=== PATIENT | female | born 1955 | race Caucasian/White ===

== ENCOUNTER → 2017-07-03 | Day surgery (SDC) | payer MEDICARE ==
[~2017-07-03] VITALS: Ht 166.4 cm; Wt 57.0 kg
[~2017-07-03] MED LIST: 0.9% Sodium Chloride 1,000 ML IV SCH; BIOT5CAP9 PO; CHOL200025 PO; DICY10CA56 PO; LACT1CAP65 PO; MAGN84TA5 PO; METO25TA6 PO; OMEP40CA36 PO; RESV250C2 PO; RNT300T PO; Sodium Chloride LOK Flush 10 mL Syringe IV PRN; TOLT1TAB2 PO; TRAZ-115 PO; ZINC50TA36 PO; fentaNYL-PF 50 mCg/mL 2 mL Inj IVPUSH PRN
[2017-07-03 11:20] VITALS: BP 130/84; PULSE 66; RESP 16; O2SAT 98
[2017-07-03 12:30] VITALS: BP 120/75; PULSE 85; RESP 12; O2SAT 97
[2017-07-03 12:41] VITALS: BP 114/72; PULSE 78; RESP 14; O2SAT 97
--- NOTE | 2017-07-03 15:05 | ENDO ---
[address] [address] ENDOSCOPY PROCEDURE PATIENT: BLADE BOJORQUEZ : 1955 MR#: [id number] ADMIT: 07/03/2017 JOB ID: [id number] DATE: 07/03/2017 TYPE OF OPERATION: Esophagogastroduodenoscopy with biopsy. PREOPERATIVE DIAGNOSIS(ES): Abdominal pain and Sun history. POSTOPERATIVE DIAGNOSIS(ES): Mild nonerosive gastritis. ANESTHESIA: 1. Fentanyl 100 mcg. 2. Versed 5 mg IV administered. COMPLICATIONS: None. BLOOD LOSS: Minimal. DESCRIPTION OF PROCEDURE: After risks and benefits were explained to the patient, informed consent was obtained. After anesthesia administered, upper endoscope was then inserted into mouth intubating the esophagus, stomach, second portion of duodenum. Mucosa carefully examined. After the procedure was done, the scope withdrawn and procedure terminated. FINDINGS: Upon inspection of the esophagus, the esophagus appeared normal without masses, ulcers or lesions. Z-line located at 38 cm from incisors. Upon entering the stomach, there is mild nonerosive gastritis that was seen. No masses or ulcers were seen. Retroflexion was normal. Duodenal bulb and second portion normal. Biopsies taken of the antrum, body and distal esophagus. IMPRESSION: Mild nonerosive gastritis status post biopsy. RECOMMENDATION: 1. Await pathology results. 2. Followup in GI clinic as needed.
--- NOTE | 2017-07-05 16:18 | PATH ---
SURGICAL PATHOLOGY Attending Physician:Julio Vizcarra MD CASE STATUS: Signed Out PATIENT NAME: BLADE BOJORQUEZ PID: [id number] : 1955 DATE COLLECTED:07/03/2017 19:23 SPECIMEN: 1: Stomach, Antrum, Biopsy 2: Gastric, Biopsy 3: Esophagus, Biopsy CLINICAL HISTORY: 1). ANTRUM BIOPSY 2). GASTRIC BODY BIOPSY, RULE OUT H PYLORI 3). DISTAL ESOPHAGUS BIOPSY FINAL DIAGNOSIS: 1. Stomach, Biopsy: Antral mucosa with no diagnostic abnormality. Negative for Helicobacter organisms. Negative for intestinal metaplasia. Negative for dysplasia and malignancy. 2. Stomach, Body, Biopsy: Body-type mucosa with no diagnostic abnormality. Negative for Helicobacter organisms. Negative for intestinal metaplasia. Negative for dysplasia and malignancy. 3. Distal Esophagus, Biopsy: Squamocolumnar junctional mucosa with no diagnostic abnormality. Negative for intestinal metaplasia. Negative for dysplasia and malignancy. ICD10: R10.9 GROSS DESCRIPTION: The specimen is received in three formalin filled containers labeled with the patient's name. 1). The specimen is labeled "antrum" and consists of 2 portions of tissue which aggregate to 0.3 x 0.3 x 0.2 CM. The specimen is entirely submitted in cassette 1A. 2). The specimen is labeled "gastric body" and consists of 2 portions of tissue which aggregate to 0.3 x 0.3 x 0.2 CM. The specimen is entirely submitted in cassette 2A. 3). The specimen is labeled "distal esophagus" and consists of 2 portions of tissue which aggregate to 0.1 x 0.1 x 0.1 CM. The specimen is entirely submitted in cassette 3A. 07/03/2017DC ICD-9 CODES: CPT CODES: 1: 57772 2: 38603 3: 60412 Electronically Signed Out Gracia Rodriguez MD [facility] Pathology [facility] [address], [place] [address] Technical component performed at [facility], [facility] [address], [address]
== END | disposition home or self-care (01) ==
LOC: END 00:32
PROVIDERS: ATTEND Internal Medicine Gastroenterology
DX: K29.70 Gastritis, unspecified, without bleeding (principal); I49.9 Cardiac arrhythmia, unspecified; M79.7 Fibromyalgia
CPT/HCPCS: 43239; G0500; J2250; J3010; J7030